=== PATIENT | female | born 1985 | race Hispanic/Latino ===

== ENCOUNTER 2016-08-28 08:13 | Emergency (ER) | payer OTHER ==
[2016-08-28 08:18] VITALS: BMI 24.3
--- NOTE | 2016-08-28 09:30 | ED PDOC ---
HPI: General Adult Time Seen by Provider: 08/28/16 08:52 Chief Complaint (Nursing): Upper Extremity Problem/Injury History Per: Patient History/Exam Limitations: no limitations Onset/Duration Of Symptoms: Days (1) Have you had recent travel within the past 21 days to any of the following countries: [place], [place], [place] or [place]?: No Current Symptoms Are (Timing): Still Present Severity: Severe Pain Scale Rating Of: 10 Additional History Per: Patient Additional Complaint(s): Pt co neck pain since last night. NO trauma. Pain is severe. radiating to spine down and right arm. Associated tingling in right arm. NO weakness. NO headache. Pt is not on pain management. Pt took motrin and SOMA at home for pain with mild relief. Past Medical History Reviewed: Historical Data, Nursing Documentation, Vital Signs Vital Signs: Last Vital Signs Temp 98 F 08/28/16 08:17 Pulse 102 H 08/28/16 08:17 Resp BP 129/72 08/28/16 08:17 Pulse Ox 100 08/28/16 09:32 - Medical History PMH: No Chronic Diseases Denies: Depression, HIV - Surgical History Surgical History: - Family History Family History: States: Unknown Family Hx - Immunization History Hx Tetanus Toxoid Vaccination: No - Home Medications Home Medications: Ambulatory Orders Medication Instructions Recorded Lidocaine 5% [Lidoderm] 1 ea TD DAILY #10 patch 11/29/15 oxyCODONE/Acetaminophen [Percocet 1 ea PO Q6 PRN #10 tab 11/29/15 5/325 mg Tab] Famotidine [Pepcid] 20 mg PO BID #28 tab 03/28/16 Ondansetron [Zofran] 4 mg PO Q8H #9 tab 03/28/16 Methylprednisolone [Medrol Dose 4 mg PO DAILY #21 mg 08/28/16 Pack (21 tabs)] diaZEpam [Valium] 5 mg PO BID #10 tab 08/28/16 - Allergies Allergies/Adverse Reactions: Allergies Allergy/AdvReac Type Severity Reaction Status Date / Time paroxetine HCl [From Paxil] Allergy Mild ANGIOEDEMA Verified 08/28/16 08:42 Review of Systems ROS Statement: Except As Marked, All Systems Reviewed And Found Negative Constitutional: Negative for: Fever Musculoskeletal: Positive for: Neck Pain Neurological: Negative for: Headache Physical Exam - Reviewed Nursing Documentation Reviewed: Yes Vital Signs Reviewed: Yes - Physical Exam Appears: Positive for: Well, Non-toxic, Uncomfortable Head Exam: Positive for: ATRAUMATIC Skin: Positive for: Warm, Dry Eye Exam: Positive for: EOMI Cardiovascular/Chest: Positive for: Regular Rate, Rhythm. Negative for: Tachycardia Respiratory: Positive for: Normal Breath Sounds. Negative for: Wheezing, Respiratory Distress Gastrointestinal/Abdominal: Positive for: Soft. Negative for: Tenderness Extremity: Positive for: Normal ROM Neurologic/Psych: Positive for: Alert, Oriented, Gait (steady). Negative for: Aphasia - ECG O2 Sat by Pulse Oximetry: 100 - Progress Re-evaluation Time: 14:49 Condition: Re-examined, Improved Medical Decision Making Medical Decision Making: Impression Neck pain Diff cervical radiculopathy Disposition - Clinical Impression Clinical Impression: Neck pain - Patient ED Disposition Is Patient to be Admitted: No Doctor Will See Patient In The: Office Counseled Patient/Family Regarding: Studies Performed, Diagnosis, Need For Followup - Disposition Referrals: Judy Hurt MD [Staff Provider] - Sunny Coburn MD [Family Provider] - Disposition: Routine/Home Disposition Time: 14:49 Condition: GOOD Additional Instructions: Follow up with your PCP in 2-3 days. Prescriptions: diaZEpam [Valium] 5 mg PO BID #10 tab Instructions: Cervical Radiculopathy (ED)
--- NOTE | 2016-08-28 11:36 | CT ---
CT cervical spine without IV contrast Indication: Neck pain Comparison: C-spine CT without contrast performed 01/18/16, MRI cervical spine without contrast performed 01/18/16 Technique: Axial computed tomography images were obtained of the cervical spine without the use of intravenous contrast. Coronal and sagittal reformatted images were created and reviewed. This CT exam was performed using 1 or more of the falling dose reduction techniques: Automated exposure control, adjustment of the MAA and/or kV according to patient size, and/or use of iterative reconstruction technique. Radiation dose: Total exam DLP = 400.03 mGy-cm. Findings: There is no evidence of acute fracture or subluxation. There is preserved alignment, vertebral body height, intervertebral disc spaces. The prevertebral soft tissues and spinolaminar lines appear intact. The lateral masses are preserved. The dens tip is intact. There is proper alignment of the lateral masses of C1 with the C2 vertebral body. Included portions of the thyroid gland demonstrates 1.2 x 0.8 cm ovoid hypodensity which contains within it 6 x 4 mm hyperdense structure shaped low-attenuation focus left lobe thyroid gland. Recommend followup thyroid ultrasound. Included portions of lung apices appear clear. Impression: No evidence of acute fracture or subluxation. 1.2 x 0.8 cm ovoid thyroid hypodensity which contains within it 6 x 4 mm hyperdense structure shaped low-attenuation focus left lobe thyroid gland. Recommend followup thyroid ultrasound if not already performed.
[2016-08-28] MEDS ORDERED: HYDROmorphone 0.5 mg/0.5 ml ISec IVP STA (13:35)
[2016-08-28 15:36] VITALS: BP 128/78; PULSE 78; RESP 20; TEMP 97.6; O2SAT 98
== END 2016-08-28 15:36 | disposition home or self-care (01) ==
LOC: H.ER 08:13
DX: M54.12 Radiculopathy, cervical region (principal)

== ENCOUNTER 2016-10-30 06:38 | Emergency (ER) | payer OTHER ==
[2016-10-30 06:38] VITALS: BMI 24.3
[2016-10-30 06:58] VITALS: BP 109/80; PULSE 69; RESP 16; TEMP 98.1; O2SAT 99
--- NOTE | 2016-10-30 08:05 | ED PDOC ---
HPI: General Adult Time Seen by Provider: 10/30/16 07:04 Chief Complaint (Nursing): Headache Chief Complaint (Provider): Neck Pain History Per: Patient History/Exam Limitations: no limitations Current Symptoms Are (Timing): Still Present Additional Complaint(s): Alisson Yoo, a 31 year old female, presents to the ED with neck pain which started around 0430 this morning. The patient states that the pain radiates downwards and into her left shoulder. She reports that the pain is worse with movement when she turns her head to the left. Patient states she took 600mg of motrin with no relief. She reports that she was seen here a few months ago for the same neck pain but at that time is was radiating. Patient states that time she was given Dilaudid which offered relief. Denies parasthesias, trauma, weakness. Past Medical History Vital Signs: Last Vital Signs Temp 98.1 F 10/30/16 06:55 Pulse 69 10/30/16 06:55 Resp 16 10/30/16 06:55 BP 109/80 10/30/16 06:55 Pulse Ox 99 10/30/16 09:59 - Medical History PMH: Denies: Depression, HIV Other PMH: Ovarian Cyst - Surgical History Surgical History: - Family History Family History: States: Unknown Family Hx - Immunization History Hx Tetanus Toxoid Vaccination: No - Home Medications Home Medications: Ambulatory Orders Medication Instructions Recorded Lidocaine 5% [Lidoderm] 1 ea TD DAILY #10 patch 11/29/15 oxyCODONE/Acetaminophen [Percocet 1 ea PO Q6 PRN #10 tab 11/29/15 5/325 mg Tab] Famotidine [Pepcid] 20 mg PO BID #28 tab 03/28/16 Ondansetron [Zofran] 4 mg PO Q8H #9 tab 03/28/16 Methylprednisolone [Medrol Dose 4 mg PO DAILY #21 mg 08/28/16 Pack (21 tabs)] diaZEpam [Valium] 5 mg PO BID #10 tab 08/28/16 Naproxen [Naprosyn] 500 mg PO BID PRN #15 tablet 10/30/16 diaZEpam [Valium] 5 mg PO TID PRN #10 tab 10/30/16 - Allergies Allergies/Adverse Reactions: Allergies Allergy/AdvReac Type Severity Reaction Status Date / Time paroxetine HCl [From Paxil] Allergy Severe RASH Verified 10/30/16 06:54 Review of Systems Musculoskeletal: Positive for: Neck Pain (neck pain radiating down into left shoulder) Physical Exam - Reviewed Nursing Documentation Reviewed: Yes Vital Signs Reviewed: Yes - Physical Exam Appears: Positive for: Non-toxic, No Acute Distress Head Exam: Positive for: ATRAUMATIC, NORMAL INSPECTION, NORMOCEPHALIC Skin: Positive for: Normal Color, Warm, Dry. Negative for: Rash Eye Exam: Positive for: Normal appearance, EOMI, PERRL ENT: Negative for: Normal ENT Inspection (C-spine tenderness from C4 down to C7. ) Neck: Positive for: Supple, Decreased ROM (Decreased ROM of head to the left.). Negative for: Painless ROM Cardiovascular/Chest: Positive for: Regular Rate, Rhythm, Chest Non Tender. Negative for: Tachycardia Respiratory: Positive for: Normal Breath Sounds. Negative for: Rales, Rhonchi, Wheezing, Respiratory Distress Gastrointestinal/Abdominal: Positive for: Normal Exam, Bowel Sounds, Soft. Negative for: Tenderness, Mass, Guarding, Rebound Back: Positive for: Normal Inspection. Negative for: L CVA Tenderness, R CVA Tenderness, Muscle Spasm Extremity: Positive for: Normal ROM. Negative for: Tenderness, Deformity, Swelling Neurologic/Psych: Positive for: Alert, Oriented, Gait - ECG O2 Sat by Pulse Oximetry: 99 (RA) Pulse Ox Interpretation: Normal Medical Decision Making Medical Decision Makin Initial Impression: 31 year old female presenting with left sided neck pain Initial Plan: * CT Cervical Spine w/o * Contrast * Upreg * Fexeril 10mg PO * Toradol 30mg IM * Reevaluation 09 Patient is refusing flexeril and toradol because she states that she is taking aspirin. Copy of CT report was going to be given to patient for incidental thyroid finding to take to Dr. Coburn. - Scribe Attestation Documented by Lisa Fiore acting as a scribe for Fernanda Chase MD. Provider Attestation All medical record entries made by the Scribe were at my direction and personally dictated by me. I have reviewed the chart and agree that the record accurately reflects my personal performance of the history, physical exam, medical decision making, and the department course for this patient. I have also personally directed, reviewed, and agree with the discharge instructions and disposition. Disposition - Clinical Impression Clinical Impression: Neck pain, Muscle spasm - Disposition Referrals: Sunny Coburn MD [Family Provider] - Disposition: Routine/Home Disposition Time: 09:15 Condition: STABLE Prescriptions: diaZEpam [Valium] 5 mg PO TID PRN #10 tab PRN Reason: Muscle Spasm Naproxen [Naprosyn] 500 mg PO BID PRN #15 tablet PRN Reason: Pain, Moderate (4-7) Instructions: Muscle Spasm (ED) Forms: [facility] (Indonesian)
[2016-10-30] MEDS ORDERED: Lidocaine 5% Patch TD STA (08:38)
--- NOTE | 2016-10-30 09:19 | CT ---
PROCEDURE: CT Cervical Spine without contrast HISTORY: Fall COMPARISON: None available. TECHNIQUE: Axial computed tomography images were obtained of the cervical spine without the use of intravenous contrast. Coronal and sagittal reformatted images were created and reviewed. Radiation dose: Total exam DLP = 413.87 mGy-cm. This CT exam was performed using one or more of the following dose reduction techniques: Automated exposure control, adjustment of the mA and/or kV according to patient size, and/or use of iterative reconstruction technique. FINDINGS: VERTEBRAE: There is mild reversal of normal cervical lordosis. Vertebral alignment is normal. Vertebral height is maintained. There is no acute fracture or traumatic anterior listhesis. The craniocervical junction is normal. The atlantoaxial joint is normal. DISCS/SPINAL CANAL/NEURAL FORAMINA: The disc heights are maintained. The spinal canal is patent. PARASPINAL SOFT TISSUES: There is no prevertebral soft tissue thickening. The paraspinous soft tissues are normal. OTHER FINDINGS: There is a 1.5 x 0.8 cm cystic nodule with eccentric mural nodularity in the upper pole of the left thyroid lobe. IMPRESSION: 1. No acute fracture or traumatic anterior listhesis. 2. Mild reversal of normal cervical lordosis could be positional or related to muscle spasm. 3. 1.5 cm complex cystic nodule in the upper pole of the left thyroid lobe. A dedicated thyroid ultrasound on a nonemergent basis is recommended for further characterization.
== END 2016-10-30 09:59 | disposition home or self-care (01) ==
LOC: H.ER 06:38
DX: M62.838 Other muscle spasm (principal)

== ENCOUNTER 2017-03-12 14:18 | Emergency (ER) | payer OTHER ==
[2017-03-12 14:19] VITALS: BMI 24.3
[2017-03-12 14:29] VITALS: BP 119/68; PULSE 117; RESP 22; TEMP 98.8; O2SAT 98
[2017-03-12] MEDS ORDERED: Albuterol-Ipratrop 3 mg / 0.5 (3 ml) UD INH STA ×2 (14:53→16:10)
--- NOTE | 2017-03-12 14:58 | ED PDOC ---
HPI: General Adult Time Seen by Provider: 03/12/17 14:35 Chief Complaint (Nursing): Flu-like Symptoms Chief Complaint (Provider): cough, congestion, sinus pressure History Per: Patient History/Exam Limitations: no limitations Onset/Duration Of Symptoms: Days (7), Gradual Current Symptoms Are (Timing): Still Present Severity: Severe Location: chest/sinus Recent Trauma: no Recently: Seen In ED ([facility]) Additional Complaint(s): 31yo female hx smoking, now presents c/o cough, SOB, wheeze, L>R sinus pressure and headache ongoing since middle of last week. Went to hospital in [place] and Rx augmentin which shes been taking since w minimal improvement. Denies fever, neck pain, rash, chest pain. Past Medical History Reviewed: Historical Data, Nursing Documentation, Vital Signs Vital Signs: Last Vital Signs Temp 98.8 F 03/12/17 14:26 Pulse 117 H 03/12/17 14:26 Resp 22 03/12/17 14:26 BP 119/68 03/12/17 14:26 Pulse Ox 98 03/12/17 15:00 - Medical History PMH: Denies: Depression, HIV - Surgical History Surgical History: Other surgeries: ovarian cyst - Family History Family History: States: Other - Social History Current smoker - smoking cessation education provided: Yes (hasnt smoked in one week) - Immunization History Hx Tetanus Toxoid Vaccination: No - Home Medications Home Medications: Ambulatory Orders Medication Instructions Recorded Lidocaine 5% [Lidoderm] 1 ea TD DAILY #10 patch 11/29/15 oxyCODONE/Acetaminophen [Percocet 1 ea PO Q6 PRN #10 tab 11/29/15 5/325 mg Tab] Famotidine [Pepcid] 20 mg PO BID #28 tab 03/28/16 Ondansetron [Zofran] 4 mg PO Q8H #9 tab 03/28/16 Methylprednisolone [Medrol Dose 4 mg PO DAILY #21 mg 08/28/16 Pack (21 tabs)] diaZEpam [Valium] 5 mg PO BID #10 tab 08/28/16 Naproxen [Naprosyn] 500 mg PO BID PRN #15 tablet 10/30/16 diaZEpam [Valium] 5 mg PO TID PRN #10 tab 10/30/16 Albuterol 0.083% [Albuterol 0.083% 2.5 mg IH Q4 PRN #20 neb 03/12/17 Inhal Jie (2.5 mg/3 ml) UD] Albuterol HFA [Ventolin HFA 90 1 - 2 puff IH Q4 PRN #1 inhaler 03/12/17 mcg/actuation (8 g)] Ibuprofen [Motrin Tab] 600 mg PO Q6 PRN #15 tab 03/12/17 Pseudoephedrine HCl [Sudafed] 30 mg PO Q6 PRN #15 tablet 03/12/17 predniSONE [Prednisone] 40 mg PO DAILY #6 tab 03/12/17 - Allergies Allergies/Adverse Reactions: Allergies Allergy/AdvReac Type Severity Reaction Status Date / Time paroxetine HCl [From Paxil] Allergy Severe RASH Verified 10/30/16 06:54 Review of Systems Constitutional: Positive for: Malaise ENT: Positive for: Ear Pain, Nose Discharge, Throat Pain (mild). Negative for: Ear Discharge, Mouth Pain, Throat Swelling Cardiovascular: Negative for: Chest Pain, Palpitations, Orthopnea Respiratory: Positive for: Cough, Shortness of Breath, Sputum, Wheezing Gastrointestinal: Negative for: Nausea, Vomiting, Abdominal Pain Genitourinary Female: Negative for: Dysuria Musculoskeletal: Negative for: Neck Pain, Back Pain, Leg Pain Skin: Negative for: Rash, Lesions, Jaundice Neurological: Positive for: Headache (mild). Negative for: Weakness, Numbness, Dizziness Physical Exam - Reviewed Nursing Documentation Reviewed: Yes Vital Signs Reviewed: Yes - Physical Exam Appears: Positive for: Non-toxic Head Exam: Positive for: ATRAUMATIC, NORMAL INSPECTION, NORMOCEPHALIC Skin: Positive for: Normal Color, Warm, DRY Eye Exam: Positive for: EOMI, Normal appearance, PERRL ENT: Positive for: TM Is/Are (+fluid behind both TM no erythema), Pharyngeal Erythema (mild). Negative for: Tonsillar Swelling Neck: Positive for: Normal, Painless ROM Cardiovascular/Chest: Positive for: Regular Rate, Rhythm Respiratory: Positive for: Decreased Breath Sounds, Wheezing Gastrointestinal/Abdominal: Positive for: Bowel Sounds, Soft. Negative for: Tenderness Back: Positive for: Normal Inspection Extremity: Positive for: Normal ROM Neurologic/Psych: Positive for: Alert, Oriented. Negative for: Motor/Sensory Deficits - ECG O2 Sat by Pulse Oximetry: 98 Medical Decision Making Medical Decision Making: workup initiated for bronchitis with sinus involvement in 31yo smoker Check CXR, initiate duoneb/solumedrol and sudafed for sinus discomfort Improved over course of ED stay, required repeat nebulizer Rx low dose prednisone- stated had muscle soreness and sleep disturbance w prior experience w prednisone. Had approx 5min talk on smoking cessation and absolute need to quit. Rec pulmonary eval as outpatient. No signs sepsis, respiratory failure or hemodynamic instability to indicate hospitalization at the time of eval. Disposition - Clinical Impression Clinical Impression: Reactive airway disease, Bronchitis, Sinusitis - Patient ED Disposition Is Patient to be Admitted: No Counseled Patient/Family Regarding: Studies Performed, Diagnosis, Need For Followup, Rx Given - Disposition Referrals: Miguel Angel Madrigal MD [Staff Provider] - Sunny Coburn MD [Staff Provider] - Disposition: Routine/Home Disposition Time: 17:01 Condition: STABLE Additional Instructions: Return to ER for any worse or new symptoms. Take medications as directed. Continue augmentin as prior prescribed. STOP SMOKING Prescriptions: Albuterol 0.083% [Albuterol 0.083% Inhal Jie (2.5 mg/3 ml) UD] 2.5 mg IH Q4 PRN #20 neb PRN Reason: Wheezing Albuterol HFA [Ventolin HFA 90 mcg/actuation (8 g)] 1 - 2 puff IH Q4 PRN #1 inhaler PRN Reason: Shortness Of Breath Ibuprofen [Motrin Tab] 600 mg PO Q6 PRN #15 tab PRN Reason: Pain, Moderate (4-7) predniSONE [Prednisone] 40 mg PO DAILY #6 tab Pseudoephedrine HCl [Sudafed] 30 mg PO Q6 PRN #15 tablet PRN Reason: Nasal Congestion Instructions: Pseudoephedrine (By mouth), How to Stop Smoking (ED), Sinusitis ( ED), Acute Bronchitis (ED) Forms: [employer] (Palauan)
[2017-03-12] MEDS ORDERED: Albuterol-Ipratrop 3 mg / 0.5 (3 ml) UD ONE (15:04)
--- NOTE | 2017-03-12 15:46 | RAD ---
HISTORY: cough, wheeze, SOB, COMPARISON: Chest radiograph dated 10/12/2013 TECHNIQUE: Chest PA and lateral FINDINGS: LUNGS: No active pulmonary disease. PLEURA: No significant pleural effusion identified. No pneumothorax apparent. CARDIOVASCULAR: Normal. OSSEOUS STRUCTURES: No significant abnormalities. VISUALIZED UPPER ABDOMEN: Normal. OTHER FINDINGS: None. IMPRESSION: No active disease.
--- NOTE | 2017-03-13 10:55 | CARD ---
APPROVED REPORT EKG Measurement Heart [id number] <Conclusion> Sinus tachycardia Otherwise normal ECG
== END 2017-03-12 17:35 | disposition home or self-care (01) ==
LOC: H.ER 14:18
DX: J40 Bronchitis, not specified as acute or chronic (principal); J32.9 Chronic sinusitis, unspecified; F17.200 Nicotine dependence, unspecified, uncomplicated; J45.909 Unspecified asthma, uncomplicated
CPT/HCPCS: 71046; 81025; 93005; 94640; 96372; 99282; J2930